=== PATIENT | female | born 1995 | race Two or more races ===

== ENCOUNTER 2024-05-09 14:43 | Outpatient (CLI) | payer OTHER, SELFPAY ==
--- NOTE | 2024-05-09 14:45 | CRLHL7_ITS ---
For Patients: As a result of the Cures Act, medical imaging exams and procedure reports are released immediately into your electronic medical record. You may view this report before your referring provider. If you have questions, please contact your health care provider. INDICATION: First trimester scan, establish dates. COMPARISON: None. TECHNIQUE: Real-time power-scale imaging of the pelvis was performed. FINDINGS: Sonographic imaging demonstrates a single living intrauterine gestation. The embryo demonstrates a regular cardiac rate measuring 163 beats per minute. The embryo`s crown-rump length measurement of 3.1 cm corresponds to a gestational age of 10 weeks 0 days with a sonographic due date of 12/05/2024. There is a normal-appearing yolk sac. There are no gross abnormalities noted within the embryo at this early state of development. The gestational sac has a normal appearance. There is no evidence of a perigestational hemorrhage. The amount of fluid within the sac appears appropriate for gestational age. The cervix is closed. The myometrium appears normal. Corpus luteal cyst right ovary. Left ovary not visualized. There are no suspicious fluid collections noted in the cul-de-sac. IMPRESSION: Normal first trimester OB ultrasound exam. Gestational age calculated at 10 weeks 0 days with a sonographic due date of 12/05/2024. Dictated by John Calvillo MD @ 05/10/2024 12:25:51 PM (Electronically Signed)
== END 2024-05-09 14:44 | disposition home or self-care (01) ==
LOC: US 14:46
PROVIDERS: Visit Provider Registered Nurse
DX: Z34.91 Encounter for supervision of normal pregnancy, unspecified, first trimester (principal); Z3A.10 10 weeks gestation of pregnancy
CPT/HCPCS: 76801; T1013

== ENCOUNTER 2024-05-09 15:57 | Outpatient (CLI) | payer MEDICAID, SELFPAY ==
[2024-05-09 19:04] LABS: GC DNA Amplified* NOT DETECTED (No Detected)
[2024-05-09 22:24] LABS: Chlamydia DNA Amplified* DETECTED (No Detected)
[2024-05-12 06:33] LABS: HPV Source Cervix; HPV, High Risk by TMA Not Detected
== END 2024-05-09 15:58 | disposition home or self-care (01) ==
PROVIDERS: Visit Provider Registered Nurse
DX: O09.291 Supervision of pregnancy with other poor reproductive or obstetric history, first trimester (principal); O21.9 Vomiting of pregnancy, unspecified; Z3A.09 9 weeks gestation of pregnancy; Z12.4 Encounter for screening for malignant neoplasm of cervix; Z11.51 Encounter for screening for human papillomavirus (HPV); Z11.3 Encounter for screening for infections with a predominantly sexual mode of transmission; Z11.4 Encounter for screening for human immunodeficiency virus [HIV]; Z87.891 Personal history of nicotine dependence; Z55.0 Illiteracy and low-level literacy; Z71.0 Person encountering health services to consult on behalf of another person
CPT/HCPCS: 86592; 86703; 86704; 86706; 86762; 86787; 86803; 86850; 86900; 86901; 87086; 87340; 87491; 87591; 87624; 87625; 88141; 88142; T1013

== ENCOUNTER 2024-05-28 08:32 | Outpatient (CLI) | payer MEDICAID, SELFPAY ==
[2024-05-28 14:55] LABS: Chlamydia DNA Amplified* NOT DETECTED (No Detected); GC DNA Amplified* NOT DETECTED (No Detected)
== END 2024-05-28 08:33 | disposition home or self-care (01) ==
LOC: LKVREF 08:33
PROVIDERS: Visit Provider Physician Assistant
DX: O98.311 Other infections with a predominantly sexual mode of transmission complicating pregnancy, first trimester (principal); A56.8 Sexually transmitted chlamydial infection of other sites; Z11.3 Encounter for screening for infections with a predominantly sexual mode of transmission; Z3A.12 12 weeks gestation of pregnancy
CPT/HCPCS: 87491; 87591

== ENCOUNTER 2024-07-23 12:51 | Outpatient (CLI) | payer MEDICAID, SELFPAY ==
--- NOTE | 2024-07-23 13:00 | CRLHL7_ITS ---
For Patients: As a result of the Century Cures Act, medical imaging exams and procedure reports are released immediately into your electronic medical record. You may view this report before your referring provider. If you have questions, please contact your health care provider. OB ULTRASOUND GREATER THAN 14 WEEKS, 07/23/2024 CLINICAL HISTORY: Anatomy survey. LMP: 03/02/2024. COMPARISON: None. TECHNIQUE: Transabdominal. FINDINGS: MEME by LMP: 12/07/2024. GA: 20 weeks 3 days. position: Vertex. Cervix: Visualized. Technique: Transabdominal. Placenta cord: Anterior. Technique: Transabdominal. Placenta tip to internal OS: 8.0 cm. Umbilical cord: 3 vessel cord. Placental insertion: Central. Amniotic fluid: 5.4 cm. OBSERVED STRUCTURES: Calvarium spine: Cerebellum 2.1 cm, 21 weeks 2 days. Cisterna magna: 4.9 mm. Nuchal fold: 5.3 mm. Lateral ventricle: 3.8 mm. CSP Midline falx Choroid plexus Spine Abdomen Stomach Abd cord insert Urinary bladder Kidneys Diaphragm Face Orbital view Limbs Upper extremities Lower extremities Hands Feet Vascular 4 Ch heart LVOT 3VV 3VTV BIOMETRY: BPD: 4.7 cm, 20 weeks 2 days. 41.3% HC: 18.0 cm, 20 weeks 3 days. 39.5% AC: 16.0 cm, 21 weeks 1 day. 66.1% FL: 3.4 cm, 20 weeks 4 days. 46.8% RATIO FL/AC: 21.09% HC/AC: 1.12. heart rate: 147 bpm. age by this US: 20 weeks 5 days. MEME by this US: 12/05/2024. EFW: 377.1 grams. 13 oz. Percentile by MEME: 65.6% IMPRESSION: 1. Single viable intrauterine . 2. Measurements are consistent with clinical dates. 3. Images of the facial profile, nose/lips, RVOT were suboptimal. Recommend followup images in 1-2 weeks. 4. Otherwise, normal anatomic survey. Bradley Ruiz M.D. [facility] [employer] [email or web address] Transcribed: 11:54 am DW/Dictated by: Bradley Ruiz MD @ 07/24/2024 10:37:00 AM (Electronically Signed)
== END 2024-07-23 12:52 | disposition home or self-care (01) ==
LOC: US 12:52
PROVIDERS: Visit Provider Midwife
DX: O28.3 Abnormal ultrasonic finding on antenatal screening of mother (principal); Z3A.20 20 weeks gestation of pregnancy
CPT/HCPCS: 76805